=== PATIENT | male | born 1985 | race Two or more races ===

== ENCOUNTER 2018-12-01 15:51 | Emergency (ER) | payer SELFPAY ==
[~2018-12-01] VITALS: Ht 185.4 cm; Wt 79.0 kg
[2018-12-01] MEDS ORDERED: CLON2 PO (16:16)
[2018-12-01] MEDS ORDERED: ClonazePAM 1 MG TABLET PO ONE (16:45)
[2018-12-01 17:10] VITALS: BP 121/78
== END 2018-12-01 17:12 | disposition home or self-care (01) ==
LOC: EMS 15:54
DX: F41.9 Anxiety disorder, unspecified (principal); F17.210 Nicotine dependence, cigarettes, uncomplicated; Z76.0 Encounter for issue of repeat prescription; Z79.899 Other long term (current) drug therapy